=== PATIENT | female | born 1990 | race Caucasian/White ===

== ENCOUNTER 2021-05-26 21:15 | Inpatient (IN) | payer MEDICAID, OTHER ==
[~2021-05-26] VITALS: Ht 167.6 cm; Wt 63.6 kg
[2021-05-26 22:01] LABS: Urine Bacteria MOD /hpf (None Seen); Urine Blood Negative /uL (Negative); Urine Mucus MANY (None Seen); Urine Specific Gravity 1.027 (1.001-1.035); Urine WBC 14 /hpf (0 - 5)
[2021-05-26 22:13] LABS: Amphetamine Screen, Urine NEGATIVE (NEGATIVE); Barbiturate Scree,Urine NEGATIVE (NEGATIVE); Benzodiazephine Screen, Urine NEGATIVE (NEGATIVE); Cannabinoid Screen, Urine NEGATIVE (NEGATIVE); Cocaine Screen, Urine NEGATIVE (NEGATIVE); Opiate Scree,Urine NEGATIVE (NEGATIVE); Phencyclidine Screen, Urine NEGATIVE (NEGATIVE)
[2021-05-26 23:31] LABS: Basophils # (auto) 0 10 ^3/uL (0-0.2); Basophils % (auto) 0.3 % (0.0-2.0); Eosinophils # (auto) 0.1 10 ^3/uL (0-0.8); Eosinophils % (auto) 0.7 % (0.0-7.0); Hematocrit 29.4 % (36.0-46.0); Hemoglobin 10.1 g/dL (12.2-16.2); Lymphocytes # (auto) 1.1 10 ^3/uL (0.4-5.4); Lymphocytes % (auto) 8.1 % (10.0-50.0); Mean Corpuscular Hemoglobin 33.8 pg (28.0-32.0); Mean Corpuscular Hgb Conc. 34.3 g/dL (32.0-36.0); Mean Corpuscular Volume 98.4 fL (80.0-100.0); Monocytes # (auto) 0.7 10 ^3/uL (0-1.3); Monocytes % (auto) 5.1 % (0.0-12.0); Neutrophils # (auto) 11.9 10 ^3/uL (1.6-8.6); Neutrophils % (auto) 85.8 % (37.0-80.0); Nucleated Red Blood Cells % 0.3 %; Red Blood Cells 2.98 10^6/uL (4.0-5.20); Red Cell Distribution Width 19.6 % (11.8-14.3); White Blood Cell 13.8 10^3/uL (4.4-10.8)
[2021-05-26 23:48] LABS: Albumin 3.1 g/dL (3.4-5.0); Calcium 8.7 mg/dL (8.5-10.1)
[2021-05-26 23:53] LABS: BUN/Creatinine Ratio 18.6; Bilirubin, Total 4.1 mg/dL (0.2-1.0); Total Protein 8.4 g/dL (6.4-8.2)
[2021-05-26 23:56] LABS: Potassium 2.3 mmol/L (3.5-5.1)
[2021-05-27] MEDS ORDERED: ACETAMINOPHEN 325 MG TAB PO PRN (02:30)
[2021-05-27] MEDS ORDERED: ONDANSETRON HCL 4 MG/2 ML VIAL IV PRN (02:30)
[2021-05-27] MEDS ORDERED: DOCUSATE SOD 100 MG CAP PO PRN (02:30)
[2021-05-27] MEDS ORDERED: HYDROcodone-ACET 5/325MG TAB PO PRN (02:30)
[2021-05-27] MEDS: MAGNESIUM SULFATE 1GM/100ML 100 ML IV SCH ×2 (02:31→04:41)
[2021-05-27] MEDS ORDERED: NITROGLYCERIN 0.4 MG SL TAB SL PRN (02:45)
[2021-05-27] MEDS: POTASSIUM CHL 10MEQ/50ML 50 ML IV SCH ×8 (03:00→15:13)
[2021-05-27] MEDS: SODIUM CHLORIDE 0.9% 1,000 ML IV SCH ×2 (03:00→21:19)
[2021-05-27] MEDS ORDERED: POTASSIUM CHL 10MEQ/50ML 50 ML IV SCH (03:00)
[2021-05-27] MEDS ORDERED: IOHEXOL 350 MG/ML 100ML IJ ONE (04:21)
[2021-05-27] MEDS ORDERED: MAGNESIUM SULFATE 1GM/100ML 100 ML IV ONE (04:39)
[2021-05-27 06:15] LABS: Basophils # (auto) 0 10 ^3/uL (0-0.2); Basophils % (auto) 0.4 % (0.0-2.0); Eosinophils # (auto) 0 10 ^3/uL (0-0.8); Eosinophils % (auto) 0.4 % (0.0-7.0); Hematocrit 26.2 % (36.0-46.0); Hemoglobin 8.7 g/dL (12.2-16.2); Lymphocytes # (auto) 1.2 10 ^3/uL (0.4-5.4); Mean Corpuscular Hemoglobin 32.8 pg (28.0-32.0); Mean Corpuscular Hgb Conc. 33.2 g/dL (32.0-36.0); Mean Corpuscular Volume 98.9 fL (80.0-100.0); Monocytes # (auto) 0.7 10 ^3/uL (0-1.3); Monocytes % (auto) 6.4 % (0.0-12.0); Neutrophils # (auto) 9.2 10 ^3/uL (1.6-8.6); Neutrophils % (auto) 81.8 % (37.0-80.0); Nucleated Red Blood Cells % 0.1 %; Red Blood Cells 2.65 10^6/uL (4.0-5.20); Red Cell Distribution Width 19.6 % (11.8-14.3); White Blood Cell 11.3 10^3/uL (4.4-10.8)
[2021-05-27 06:27] LABS: Albumin 2.7 g/dL (3.4-5.0); Calcium 8.2 mg/dL (8.5-10.1)
[2021-05-27 06:32] LABS: BUN/Creatinine Ratio 23.7; Bilirubin, Total 3.2 mg/dL (0.2-1.0); Total Protein 7.4 g/dL (6.4-8.2)
[2021-05-27 06:45] LABS: Potassium 2.4 mmol/L (3.5-5.1)
[2021-05-27] MEDS: ASCORBIC ACID 500 MG TAB PO SCH ×2 (08:27→21:19)
[2021-05-27] MEDS: CHOLECALCIFEROL (VITD3) 2,000 UNIT CAP/TAB PO SCH (08:28)
[2021-05-27] MEDS: ZINC SULFATE 220mg CAP or TAB PO SCH (08:28)
[2021-05-27] MEDS: ENOXAPARIN SOD 40 MG/0.4 ML SYRINGE SC SCH (08:28)
[2021-05-27] MEDS: ASPirin 81 mg TAB PO SCH (08:28)
[2021-05-27] MEDS: MORPHINE SULFATE INJECTION 2 MG/ML SYRG IV PRN ×3 (08:31→17:53)
[2021-05-27] MEDS: cefTRIAXone 1GM/50ML D5W 50 ML IV SCH (08:57)
[2021-05-27] MEDS: AZITHROMYCIN 500MG/ 250ML 250 ML IV SCH (10:06)
[2021-05-27] MEDS: MULTIPLE VITAMIN TAB PO SCH (10:08)
[2021-05-27 18:44] VITALS: BP 111/76
[2021-05-27 19:41] LABS: Anion Gap 10 (5-15); BUN/Creatinine Ratio 25.6; Blood Urea Nitrogen 11 mg/dL (7-18); Calcium 7.9 mg/dL (8.5-10.1); Carbon Dioxide 26 mmol/L (21-32); Chloride 97 mmol/L (98-107); GFR African American 222 mL/min; GFR Non-African American 183 mL/min; Glucose 89 mg/dL (74-106); Potassium 3.2 mmol/L (3.5-5.1); Sodium 133 mmol/L (136-145)
[2021-05-28 08:33] VITALS: BP 126/93
[2021-05-28] MEDS: cefTRIAXone 1GM/50ML D5W 50 ML IV SCH (09:00)
[2021-05-28] MEDS: AZITHROMYCIN 500MG/ 250ML 250 ML IV SCH (10:00)
[2021-05-28] MEDS: MORPHINE SULFATE INJECTION 2 MG/ML SYRG IV PRN ×3 (10:10→20:50)
[2021-05-28 10:17] LABS: Basophils # (auto) 0 10 ^3/uL (0-0.2); Hemoglobin 7.9 g/dL (12.2-16.2); Mean Corpuscular Volume 98.9 fL (80.0-100.0); Monocytes # (auto) 0.5 10 ^3/uL (0-1.3); Nucleated Red Blood Cells % 0.1 %
[2021-05-28 10:19] LABS: Basophils % (auto) 0.2 % (0.0-2.0); Eosinophils # (auto) 0.1 10 ^3/uL (0-0.8); Eosinophils % (auto) 1.5 % (0.0-7.0); Hematocrit 22.7 % (36.0-46.0); Lymphocytes # (auto) 1.5 10 ^3/uL (0.4-5.4); Lymphocytes % (auto) 15.5 % (10.0-50.0); Mean Corpuscular Hemoglobin 34.3 pg (28.0-32.0); Mean Corpuscular Hgb Conc. 34.6 g/dL (32.0-36.0); Monocytes % (auto) 4.7 % (0.0-12.0); Neutrophils # (auto) 7.5 10 ^3/uL (1.6-8.6); Neutrophils % (auto) 78.1 % (37.0-80.0); Red Cell Distribution Width 19.4 % (11.8-14.3); White Blood Cell 9.6 10^3/uL (4.4-10.8)
[2021-05-28 10:26] LABS: Albumin 2.5 g/dL (3.4-5.0); Calcium 8.3 mg/dL (8.5-10.1)
[2021-05-28 10:31] LABS: BUN/Creatinine Ratio 34.5; Bilirubin, Total 1.7 mg/dL (0.2-1.0); Total Protein 6.7 g/dL (6.4-8.2)
[2021-05-28] MEDS: ENOXAPARIN SOD 40 MG/0.4 ML SYRINGE SC SCH (10:32)
[2021-05-28] MEDS: CHOLECALCIFEROL (VITD3) 2,000 UNIT CAP/TAB PO SCH (10:32)
[2021-05-28] MEDS: ASCORBIC ACID 500 MG TAB PO SCH ×2 (10:33→21:13)
[2021-05-28] MEDS: MULTIPLE VITAMIN TAB PO SCH (10:33)
[2021-05-28] MEDS: ASPirin 81 mg TAB PO SCH (10:33)
[2021-05-28] MEDS: ZINC SULFATE 220mg CAP or TAB PO SCH (10:33)
[2021-05-28 10:46] LABS: Potassium 2.7 mmol/L (3.5-5.1)
[2021-05-28] MEDS ORDERED: POTASSIUM EFFERVESENT TAB 25 MEQ PO ONE ×2 (11:00)
[2021-05-28] MEDS: SODIUM CHLORIDE 0.9% 1,000 ML IV SCH (11:50)
[2021-05-28 12:25] VITALS: BP 127/98
[2021-05-28 16:47] VITALS: BP 114/91
[2021-05-28 21:00] VITALS: BP 122/76
[2021-05-28 21:30] VITALS: BP 117/81
[2021-05-29] MEDS: SODIUM CHLORIDE 0.9% 1,000 ML IV SCH ×2 (01:27→23:01)
[2021-05-29] MEDS: MORPHINE SULFATE INJECTION 2 MG/ML SYRG IV PRN ×2 (01:28→11:00)
[2021-05-29 03:00] VITALS: BP 115/63
[2021-05-29 09:00] VITALS: BP 130/96
[2021-05-29] MEDS: cefTRIAXone 1GM/50ML D5W 50 ML IV SCH (09:14)
[2021-05-29] MEDS: ASPirin 81 mg TAB PO SCH (09:57)
[2021-05-29] MEDS: CHOLECALCIFEROL (VITD3) 2,000 UNIT CAP/TAB PO SCH (09:58)
[2021-05-29] MEDS: ENOXAPARIN SOD 40 MG/0.4 ML SYRINGE SC SCH (09:58)
[2021-05-29] MEDS: MULTIPLE VITAMIN TAB PO SCH (09:58)
[2021-05-29] MEDS: ASCORBIC ACID 500 MG TAB PO SCH ×2 (09:58→23:01)
[2021-05-29] MEDS: ZINC SULFATE 220mg CAP or TAB PO SCH (09:58)
[2021-05-29] MEDS: AZITHROMYCIN 500MG/ 250ML 250 ML IV SCH (10:00)
[2021-05-29 13:28] VITALS: BP 129/96
[2021-05-29] MEDS: POTASSIUM EFFERVESENT TAB 25 MEQ PO SCH (19:48)
[2021-05-29 21:00] VITALS: BP 124/73
[2021-05-30 05:00] VITALS: BP 113/79
[2021-05-30 09:00] VITALS: BP 123/91
[2021-05-30] MEDS: cefTRIAXone 1GM/50ML D5W 50 ML IV SCH (09:36)
[2021-05-30] MEDS: ENOXAPARIN SOD 40 MG/0.4 ML SYRINGE SC SCH (10:00)
[2021-05-30] MEDS: ASPirin 81 mg TAB PO SCH (10:18)
[2021-05-30] MEDS: MULTIPLE VITAMIN TAB PO SCH (10:19)
[2021-05-30] MEDS: POTASSIUM EFFERVESENT TAB 25 MEQ PO SCH (10:19)
[2021-05-30] MEDS: ZINC SULFATE 220mg CAP or TAB PO SCH (10:19)
[2021-05-30] MEDS: ASCORBIC ACID 500 MG TAB PO SCH (10:19)
[2021-05-30] MEDS: CHOLECALCIFEROL (VITD3) 2,000 UNIT CAP/TAB PO SCH (10:20)
[2021-05-30] MEDS ORDERED: AZIT500T66 PO (10:59)
[2021-05-30 12:52] VITALS: BP 118/89
[2021-05-30 17:05] VITALS: BP 121/91
[2021-05-30 17:13] VITALS: BP 121/91
[2021-05-30 18:43] LABS: BUN/Creatinine Ratio 26.9; Calcium 9.2 mg/dL (8.5-10.1)
== END 2021-05-30 18:30 | disposition left against medical advice (07) | DRG 720 ==
LOC: ER 21:15 → OVERFLOW 05-27 02:41 → TELE 05-27 04:51 → TELE-WESTW 05-27 12:42
PROVIDERS: ADMIT Nurse Practitioner Family; ATTEND Family Medicine
DX: A41.9 Sepsis, unspecified organism (principal); J18.9 Pneumonia, unspecified organism; E87.1 Hypo-osmolality and hyponatremia; N39.0 Urinary tract infection, site not specified; J98.11 Atelectasis; E87.6 Hypokalemia; B19.20 Unspecified viral hepatitis C without hepatic coma; Z20.822 Contact with and (suspected) exposure to COVID-19; Z80.1 Family history of malignant neoplasm of trachea, bronchus and lung; Z86.79 Personal history of other diseases of the circulatory system
CPT/HCPCS: 36415; 71045; 76705; 78226; 80048; 80053; 80307; 81001; 81025; 83036; 83880; 84484; 85025; 85379; 87040; 87086; 93005; 93306; 96365; 96375; G0378; J0696; J2405

== ENCOUNTER 2021-06-11 02:37 | Emergency (ER) | payer MEDICAID, OTHER ==
[~2021-06-11] VITALS: Ht 167.6 cm; Wt 54.4 kg
[~2021-06-11 02:37] MED LIST: AZIT500T66 PO
[2021-06-11 02:51] VITALS: BP 117/90
== END 2021-06-11 04:55 | disposition left against medical advice (07) ==
LOC: ER 02:59
DX: R07.89 Other chest pain (principal); Z53.21 Procedure and treatment not carried out due to patient leaving prior to being seen by health care provider
CPT/HCPCS: 71045